=== PATIENT | male | born 1975 | race Caucasian/White ===

== ENCOUNTER 2023-11-11 14:27 | Inpatient (IN) | payer OTHER ==
[~2023-11-11 14:27] MED LIST: Iopamidol-370 76% 500 ML MDV (1 ML CHARGE) ONE
[2023-11-11] MEDS ORDERED: Acetaminophen 500 MG TAB ONE (15:09)
[2023-11-11] MEDS ORDERED: Boostrix 0.5 ML (Tdap) VIAL (>/=7 yrs of age) ONE (15:09)
[2023-11-11 15:24] LABS: #Eosinphils 0.1 thou/uL (0.0-0.7); #Monocytes 0.8 thou/uL (0.11-0.59); #Neutrophils 10.4 thou/uL (1.40-6.50); %Basophils 0.3 % (0.0-1.0); %Eosinophils 0.6 % (0.0-10.0); %Lymphocytes 8.7 % (21.0-51.0); %Monocytes 6.5 % (0.0-10.0); %Neutrophils 82.8 % (42.0-75.0); Hematocrit 43.8 % (42.0-52.0); Hemoglobin 15.8 g/dL (14.0-18.0); Mean Corpuscular HGB CONC 36.1 g/dL (32.0-36.0); Mean Corpuscular Hemoglobin 31.3 pg (27.0-31.0); Mean Corpuscular Volume 86.9 fl (78.0-98.0); Mean Platelet Volume 10.9 fL (7.4-10.4); Platelet Count 196 10x3/uL (130-400); RBC Distribution Width 11.9 % (11.5-14.5); Red Blood Cell (RBC) Count 5.04 mill/uL (4.70-6.10); White Blood Cell (WBC) Count 12.6 10x3/uL (4.8-10.8)
[2023-11-11 15:41] LABS: ALT (SGPT) 133 U/L (8-55); AST (SGOT) 141 U/L (5-34); Albumin 4.5 g/dL (3.5-5.0); Alkaline Phosphatase 74 U/L (40-110); Anion Gap 14 mmol/L (10-20); BUN (Urea Nitrogen) 14 mg/dL (8.9-20.6); Bilirubin, Total 0.7 mg/dL (0.2-1.2); Calc. Creatinine Clearance 0 mL/min (70-130); Carbon Dioxide 22 mmol/L (22-29); Chloride 105 mmol/L (98-107); Estimated GFR 107; Globulin 2.6 g/dL (2.4-3.5); Glucose 111 mg/dL (70-105); Potassium 3.7 mmol/L (3.5-5.1); Protein, Total 7.1 g/dL (6.0-8.3); Sodium 137 mmol/L (136-145)
[2023-11-11] MEDS ORDERED: Morphine 2 MG/ML VIAL SLOW IVP PRN (16:17)
[2023-11-11] MEDS ORDERED: Dextrose 5% in Water 1,000 ML IV PRN (16:17)
[2023-11-11] MEDS ORDERED: Ondansetron ODT 4 MG TAB PO PRN (16:17)
[2023-11-11] MEDS ORDERED: Glucagon 1 MG/ML KIT IM PRN (16:17)
[2023-11-11] MEDS ORDERED: Ondansetron PF 4 MG/2 ML Vial IVP PRN (16:17)
[2023-11-11] MEDS ORDERED: Dextrose 50% Abboject 50 ML SYRINGE SLOW IVP PRN (16:17)
[2023-11-11] MEDS ORDERED: Rib Fracture Protocol PO SCH (16:30)
[2023-11-11] MEDS ORDERED: Cyclobenzaprine 10 MG TAB PO PRN (17:45)
[2023-11-11] MEDS: Acetaminophen 500 MG TAB PO SCH (21:27)
[2023-11-11] MEDS: traMADol HCl 50 MG TAB PO SCH (21:28)
[2023-11-11] MEDS: Gabapentin 300 MG CAP PO SCH (21:29)
[2023-11-11] MEDS ORDERED: traMADol HCl 50 MG TAB ONE (21:33)
[2023-11-11] MEDS ORDERED: Gabapentin 300 MG CAP ONE (21:33)
[2023-11-11] MEDS ORDERED: Ibuprofen 800 MG TAB PO SCH (22:00)
== END 2023-11-11 21:51 | disposition left against medical advice (07) | DRG 200 ==
LOC: ERS 14:27 → ERHOLD 16:22
PROVIDERS: ADMIT Surgery; ATTEND Surgery
DX: J93.9 Pneumothorax, unspecified (principal); S12.600A Unspecified displaced fracture of seventh cervical vertebra, initial encounter for closed fracture; S22.41XA Multiple fractures of ribs, right side, initial encounter for closed fracture; W17.89XA Other fall from one level to another, initial encounter; Z88.5 Allergy status to narcotic agent
CPT/HCPCS: 70450; 71260; 72125; 74177; 80053; 85025; 90471; 90715; 93005; 96360; Q9967